=== PATIENT | male | born 1970 | race Caucasian/White ===

== ENCOUNTER 2022-10-26 23:45 | Emergency (ER) | payer OTHER ==
[~2022-10-26] VITALS: Ht 177.8 cm; Wt 90.7 kg
[2022-10-26] MEDS ORDERED: SYNTHROID137 MCG PO (23:56)
[2022-10-27] MEDS ORDERED: LEVSIN/SL0.125 MG SL (05:25)
[2022-10-27] MEDS ORDERED: ONDANSETRON ODT4 MG PO (05:25)
[2022-10-27] MEDS ORDERED: PEPCID40 MG PO (05:25)
[2022-10-27] MEDS ORDERED: CEPHALEXIN250 MG/5 M PO (05:27)
== END 2022-10-27 05:33 ==
LOC: ER 23:45
DX: N39.0 Urinary tract infection, site not specified (principal); R11.10 Vomiting, unspecified; Z85.89 Personal history of malignant neoplasm of other organs and systems; E03.9 Hypothyroidism, unspecified

== ENCOUNTER 2023-03-16 19:28 | Emergency (ER) | payer OTHER ==
[~2023-03-16] VITALS: Ht 180.3 cm; Wt 88.5 kg
[~2023-03-16 19:28] MED LIST: CEPHALEXIN250 MG/5 M PO; LEVSIN/SL0.125 MG SL; ONDANSETRON ODT4 MG PO; PEPCID40 MG PO; SYNTHROID137 MCG PO
[2023-03-16 21:27] LABS: HEMATOCRIT 41.2 % (39.0-48.0); HEMOGLOBIN 13.6 g/dL (13-16.00); MEAN CELL VOLUME 92.7 fL (80.0-100.00); MEAN CORPUSCULAR HEMOGLOBIN 30.7 pg (27.00-32.0); MEAN CORPUSCULAR HGB CONC 33.1 g/dl (32.0-36.0); PLATELET COUNT 191 K/uL (150-450); RED BLOOD COUNT 4.45 M/uL (4.00-6.00)
[2023-03-16 21:45] LABS: URINE APPEARANCE Turbid; URINE BILIRRUBIN Negative (NEGATIVE); URINE BLOOD Large; URINE COLOR Yellow; URINE GLUCOSE Negative (NEGATIVE); URINE LEUKOCYTE Large; URINE NITRATE Negative
[2023-03-16 21:48] LABS: URINE EPITHELIAL CELLS 3.5 uL (0.0-38.8)
[2023-03-16 21:59] LABS: ALBUMIN 3.5 gm/dL (3.4-5.0); BILIRUBIN TOTAL 0.41 mg/dL (0.3-1.2); CALCIUM 8.1 mg/dL (8.5-10.1); CREATININE SERUM 1.23 mg/dL (0.70-1.30); GFR 61.55; GLOBULINA 4.4 G/DL (2.4-3.5); POTASSIUM 3.57 mEq/L (3.5-5.1); TOTAL PROTEIN 7.9 gm/dL (6.4-8.2)
[2023-03-16 22:05] LABS: URINE PROTEIN 300 (NEGATIVE)
[2023-03-16 22:06] LABS: URINE MUCUS MODERATE
[2023-03-16] MEDS ORDERED: BACTRIM DS TAB1 EACH PO (22:32)
== END 2023-03-16 22:58 | disposition home or self-care (01) ==
LOC: ER 19:28
PROVIDERS: General Practice
DX: N39.0 Urinary tract infection, site not specified (principal)